=== PATIENT | female | born 1980 | race Caucasian/White ===

== ENCOUNTER 2016-11-20 09:03 | Emergency (ER) | payer MEDICAID, SELFPAY ==
[~2016-11-20] VITALS: Ht 170.2 cm; Wt 108.9 kg
[2016-11-20] MEDS ORDERED: MUCI600T37 PO (09:15)
[2016-11-20] MEDS ORDERED: PAXI40TA10 PO (09:15)
[2016-11-20] MEDS ORDERED: CORE12.5 PO (09:15)
[2016-11-20] MEDS ORDERED: AZIT-12 PO (09:15)
[2016-11-20] MEDS ORDERED: predniSONE 20 MG TAB PO ONE (10:15)
[2016-11-20] MEDS ORDERED: IPRATROPIUM 0.5MG/ALBUTEROL 2.5MG INH SOL UD 3ML (DUONEB)(J7620) NEB ONE (10:15)
[2016-11-20] MEDS ORDERED: ALBU17IN INH (10:57)
[2016-11-20] MEDS ORDERED: PRED20TA PO (10:57)
[2016-11-20] MEDS ORDERED: TESS100C PO (10:58)
[2016-11-20 11:07] VITALS: BP 172/105
== END 2016-11-20 11:14 | disposition home or self-care (01) ==
LOC: M ED 10:38
DX: J06.9 Acute upper respiratory infection, unspecified (principal); R05 Cough; I10 Essential (primary) hypertension; E66.9 Obesity, unspecified; F99 Mental disorder, not otherwise specified; F17.210 Nicotine dependence, cigarettes, uncomplicated; Z88.2 Allergy status to sulfonamides; Z79.899 Other long term (current) drug therapy; Z79.2 Long term (current) use of antibiotics

== ENCOUNTER 2017-03-29 14:34 | Emergency (ER) | payer OTHER, SELFPAY ==
[~2017-03-29] VITALS: Ht 170.2 cm; Wt 111.4 kg
[~2017-03-29 14:34] MED LIST: ALBU17IN INH; AZIT-12 PO; CORE12.5 PO; MUCI600T37 PO; PAXI40TA10 PO; PRED20TA PO; TESS100C PO
[2017-03-29] MEDS ORDERED: ASPIRIN 81 MG CHEW TABLET PO ONE (15:00)
[2017-03-29] MEDS ORDERED: MORPHINE 2 MG/ML 1ML SYRINGE IV PRN (15:00)
[2017-03-29] MEDS: METOPROLOL 5 MG/5 ML VIAL IV SCH ×3 (15:06→15:43)
[2017-03-29 15:12] LABS: BASO # 0.1 10^3/uL (0.0-0.2); EOS # 0.4 10^3/uL (0.0-0.50); EOS % 3.3 % (0.0-3.0); IMMATURE GRANULOCYTE % 0.5 % (0-0); LYMPH % 28.1 % (24.0-44.0); MEAN CORPUSCULAR HEMOGLOBIN 31.8 pg (27.0-33.0); MEAN CORPUSCULAR HGB CONC 33.8 g/dl (32.0-36.5); MONO # 0.8 10^3/uL (0.0-0.8); MONO % 7.5 % (0.0-5.0); NEUTROPHILS # 6.3 10^3/uL (1.8-7.7); NEUTROPHILS % 59.6 % (36.0-66.0); PLATELET COUNT, AUTOMATED 269 10^3/uL (150-450); RED CELL DISTRIBUTION WIDTH 13.6 % (11.5-14.5); WHITE BLOOD COUNT 10.5 10^3/uL (4.0-10.0)
[2017-03-29 15:13] LABS: ADD MORPHOLOGY? NO
[2017-03-29 15:19] LABS: INR 0.92
[2017-03-29 15:25] LABS: CONTROL LINE HCG INT CTR LINE PRESENT
[2017-03-29 15:36] LABS: ALBUMIN 3.3 GM/DL (3.2-5.2); ALBUMIN/GLOBULIN RATIO 0.77 (1.00-1.93); ALKALINE PHOSPHATASE 78 U/L (45-117); ALT/SGPT 44 U/L (12-78); ANION GAP 6 MEQ/L (8-16); AST/SGOT 26 U/L (15-37); BILIRUBIN,DIRECT < 0.1 MG/DL (0.0-0.2); BILIRUBIN,TOTAL 0.4 MG/DL (0.2-1.0); BLOOD UREA NITROGEN 7 MG/DL (7-18); CALCIUM LEVEL 9.6 MG/DL (8.5-10.1); CARBON DIOXIDE LEVEL 29 MEQ/L (21-32); CHLORIDE LEVEL 102 MEQ/L (98-107); CREATININE FOR GFR 0.85 MG/DL (0.55-1.02); FREE T4 0.99 NG/DL (0.76-1.46); GLOMERULAR FILTRATION RATE > 60.0 (>60); GLUCOSE, FASTING 101 MG/DL (70-105); POTASSIUM SERUM 3.8 MEQ/L (3.5-5.1); SODIUM LEVEL 137 MEQ/L (136-145); TOTAL PROTEIN 7.6 GM/DL (6.4-8.2)
[2017-03-29] MEDS ORDERED: NS 1,000 ML IV ONE (15:45)
--- NOTE | 2017-03-29 16:25 | REP ---
Chest one-view HISTORY: Chest pain Comparison: 07/04/2015 The lungs are clear. The heart is normal in size. The pulmonary vasculature is normal in appearance. Impression: No acute disease. Signed by Glenn Berman MD 03/29/2017 04:16 P
[2017-03-29 16:27] VITALS: BP 186/94
[2017-03-29] MEDS ORDERED: CARVedilol 12.5 MG TAB PO ONE (16:30)
[2017-03-29 18:46] VITALS: BP 173/96
--- NOTE | 2017-03-29 21:51 | ECGEPIP ---
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
--- NOTE | 2017-03-29 21:52 | ECGEPIP ---
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
== END 2017-03-29 19:02 | disposition home or self-care (01) ==
LOC: M ED 14:34
DX: R07.9 Chest pain, unspecified (principal); I10 Essential (primary) hypertension; F41.9 Anxiety disorder, unspecified; F33.9 Major depressive disorder, recurrent, unspecified; F17.210 Nicotine dependence, cigarettes, uncomplicated; Z79.899 Other long term (current) drug therapy; Z88.2 Allergy status to sulfonamides

== ENCOUNTER → 2017-06-29 | Outpatient (CLI) | payer OTHER ==
[2017-06-29 14:22] LABS: BASO # 0.1 10^3/uL (0.0-0.2); BASO % 0.7 % (0.0-1.0); EOS # 0.3 10^3/uL (0.0-0.50); IMMATURE GRANULOCYTE # 0.1 10^3/uL (0-0); IMMATURE GRANULOCYTE % 0.5 % (0-0); LYMPH # 2.6 10^3/uL (1.5-4.5); LYMPH % 16.6 % (24.0-44.0); MEAN CORPUSCULAR HEMOGLOBIN 31.9 pg (27.0-33.0); MEAN CORPUSCULAR HGB CONC 34.2 g/dl (32.0-36.5); MEAN CORPUSCULAR VOLUME 93.3 fl (80.0-96.0); MONO # 1.3 10^3/uL (0.0-0.8); MONO % 8.3 % (0.0-5.0); NEUTROPHILS % 71.9 % (36.0-66.0); PLATELET COUNT, AUTOMATED 248 10^3/uL (150-450); RED CELL DISTRIBUTION WIDTH 13.9 % (11.5-14.5); WHITE BLOOD COUNT 15.4 10^3/uL (4.0-10.0)
== END ==
LOC: M WUC 13:15
DX: J36 Peritonsillar abscess (principal)
CPT/HCPCS: 85025

== ENCOUNTER → 2017-08-04 | Outpatient (REF) | payer OTHER ==
[2017-08-04 23:13] LABS: INFLUENZA A AMPLIFICATION NEGATIVE (NEGATIVE); INFLUENZA B AMPLIFICATION NEGATIVE (NEGATIVE); RSV AMPLIFICATION NEGATIVE (NEGATIVE)
== END ==
LOC: M LAB REF 21:33
DX: J11.1 Influenza due to unidentified influenza virus with other respiratory manifestations (principal)
CPT/HCPCS: 87631

== ENCOUNTER → 2017-09-16 | Outpatient (CLI) | payer OTHER | LOC: M RAD 12:22 | DX: R00.2 Palpitations (principal) | CPT/HCPCS: 71046 ==

== ENCOUNTER 2023-03-02 01:25 | Emergency (ER) | payer OTHER ==
[~2023-03-02] VITALS: Ht 170.2 cm; Wt 112.1 kg
[~2023-03-02 01:25] MED LIST changes: +CLAR500T97 PO; +CLIN150C17 PO; -PAXI40TA10 PO; +PAXI40TA12 PO; +PROM12.56 PO
[2023-03-02 02:04] LABS: BASO # 0.1 10^3/uL (0.0-0.2); BASO % 0.9 % (0.0-1.0); EOS # 0.3 10^3/uL (0.0-0.5); EOS % 2.2 % (0.0-3.0); HEMATOCRIT 52.8 % (36.0-47.0); HEMOGLOBIN 18.1 g/dl (12.0-15.5); LYMPH # 2.8 10^3/uL (1.5-5.0); LYMPH % 19.8 % (24.0-44.0); MEAN CORPUSCULAR HEMOGLOBIN 32.7 pg (27.0-33.0); MEAN CORPUSCULAR HGB CONC 34.3 g/dl (32.0-36.5); MEAN CORPUSCULAR VOLUME 95.5 fl (80.0-96.0); MONO # 1.1 10^3/uL (0.0-0.8); NEUTROPHILS # 9.5 10^3/uL (1.5-8.5); NEUTROPHILS % 68.7 % (36.0-66.0); PLATELET COUNT, AUTOMATED 220 10^3/uL (150-450); RED BLOOD COUNT 5.53 10^6/uL (4.00-5.40); WHITE BLOOD COUNT 13.9 10^3/uL (4.0-10.0)
[2023-03-02 02:39] LABS: BLOOD UREA NITROGEN < 5 MG/DL (9-23); CALCIUM LEVEL 8.6 MG/DL (8.5-10.1); CARBON DIOXIDE LEVEL 25 MMOL/L (20-31); CHLORIDE LEVEL 103 MMOL/L (98-107); CREATININE FOR GFR 0.72 MG/DL (0.55-1.30); GLOMERULAR FILTRATION RATE > 60.0 (>58); GLUCOSE, FASTING 157 MG/DL (60-100); POTASSIUM SERUM 4.2 MMOL/L (3.5-5.1); SODIUM LEVEL 134 MMOL/L (136-145)
[2023-03-02] MEDS ORDERED: KETOROLAC 30 MG/ML 1ML VIAL IV ONE (07:25)
[2023-03-02] MEDS ORDERED: hydroCHLOROthiazide 12.5 MG CAPSULE PO ONE (07:30)
[2023-03-02] MEDS ORDERED: ISOVUE-370 76% 100ML VIAL As Ordered ONE (07:32)
[2023-03-02] MEDS ORDERED: AMPICILLIN SOD/SULBACTAM SOD 1.5 GM in D5W MINI-BAG PLUS 50 ML IV ONE (09:50)
[2023-03-02] MEDS ORDERED: dexAMETHasone 20MG/5ML VIAL IV ONE (09:50)
[2023-03-02] MEDS ORDERED: AMOX875T2 PO (10:19)
[2023-03-02] MEDS ORDERED: LISI20TA35 PO (10:19)
[2023-03-02] MEDS ORDERED: MEDR4PAK PO (10:19)
[2023-03-02 10:33] VITALS: TEMP 99.2; O2SAT 99
[2023-03-02 10:54] VITALS: BP 198/98
[2023-03-02] MEDS ORDERED: cloNIDine 0.1MG TABLET PO ONE (11:00)
== END 2023-03-02 11:14 | disposition home or self-care (01) ==
LOC: M ED 01:25
DX: K04.7 Periapical abscess without sinus (principal); L03.211 Cellulitis of face; Z76.0 Encounter for issue of repeat prescription; I10 Essential (primary) hypertension; F32.A Depression, unspecified; F17.200 Nicotine dependence, unspecified, uncomplicated
CPT/HCPCS: 70491; 80048; 85025; 85652; 86140; 87040; 96374; 96375; 99284; J0295; J1100; J1885; Q9967

== ENCOUNTER → 2023-03-13 | Outpatient (CLI) | payer MEDICAID ==
[~2023-03-13] MED LIST changes: +AMOX875T2 PO; +LISI20TA35 PO; +MEDR4PAK PO
[2023-03-13 18:57] LABS: HEMATOCRIT 54.8 % (36.0-47.0); HEMOGLOBIN 18.4 g/dl (12.0-15.5); MEAN CORPUSCULAR HEMOGLOBIN 32.9 pg (27.0-33.0); MEAN CORPUSCULAR HGB CONC 33.6 g/dl (32.0-36.5); PLATELET COUNT, AUTOMATED 262 10^3/uL (150-450); RED BLOOD COUNT 5.59 10^6/uL (4.00-5.40); WHITE BLOOD COUNT 12.6 10^3/uL (4.0-10.0)
[2023-03-13 19:05] LABS: HEMOGLOBIN A1c 7.3 % (4.0-6.0)
[2023-03-13 19:10] LABS: APPEARANCE, URINE HAZY (CLEAR); BACTERIA, URINE AUTO NEGATIVE (NEGATIVE); BILIRUBIN, URINE AUTO NEGATIVE (NEGATIVE); BLOOD, URINE BLOOD NEGATIVE (NEGATIVE); CALCIUM OXALATE CRYSTALS SMALL; COLOR, URINE AMBER (YELLOW); GLUCOSE, URINE (UA) AUTO NEGATIVE (NEGATIVE); KETONE, URINE AUTO TRACE mg/dL (NEGATIVE); LEUKOCYTE ESTERASE, URINE AUTO NEGATIVE (NEGATIVE); MUCUS, URINE SMALL (NEGATIVE); NITRITE, URINE AUTO NEGATIVE (NEGATIVE); PROTEIN, URINE AUTO NEGATIVE (NEGATIVE); RBC, URINE AUTO 2 /HPF (0-3); SPECIFIC GRAVITY URINE AUTO 1.019 (1.002-1.035); SQUAMOUS EPITHELIAL CELL UR AU 6 /HPF (0-6); WBC, URINE AUTO 3 /HPF (0-3)
[2023-03-13 19:25] LABS: ALBUMIN 3.2 G/DL (3.2-5.2); ALKALINE PHOSPHATASE 74 U/L (46-116); ALT/SGPT 42 U/L (7.0-40); AST/SGOT 15 U/L (<34); BILIRUBIN,TOTAL 0.3 MG/DL (0.3-1.2); BLOOD UREA NITROGEN 7 MG/DL (9-23); CALCIUM LEVEL 9.6 MG/DL (8.5-10.1); CARBON DIOXIDE LEVEL 31 MMOL/L (20-31); CHLORIDE LEVEL 102 MMOL/L (98-107); CREATININE FOR GFR 0.67 MG/DL (0.55-1.30); GLOMERULAR FILTRATION RATE > 60.0 (>58); GLUCOSE, FASTING 175 MG/DL (60-100); POTASSIUM SERUM 4.4 MMOL/L (3.5-5.1); SODIUM LEVEL 138 MMOL/L (136-145); TOTAL PROTEIN 6.5 G/DL (5.7-8.2)
== END ==
LOC: M WUC 15:12
PROVIDERS: ATTEND Family Medicine
DX: I10 Essential (primary) hypertension (principal); F41.9 Anxiety disorder, unspecified; R73.09 Other abnormal glucose

== ENCOUNTER → 2024-03-29 | Outpatient (CLI) | payer MEDICAID ==
[2024-03-29 18:19] LABS: BASO # 0.1 10^3/uL (0.0-0.2); BASO % 0.9 % (0.0-1.0); EOS # 0.3 10^3/uL (0.0-0.5); EOS % 2.6 % (0.0-3.0); HEMATOCRIT 52.8 % (36.0-47.0); HEMOGLOBIN 17.6 g/dl (12.0-15.5); LYMPH # 3.5 10^3/uL (1.5-5.0); LYMPH % 29.4 % (24.0-44.0); MEAN CORPUSCULAR HGB CONC 33.3 g/dl (32.0-36.5); MEAN CORPUSCULAR VOLUME 102.1 fl (80.0-96.0); MONO # 0.8 10^3/uL (0.0-0.8); MONO % 6.7 % (2.0-8.0); NEUTROPHILS # 7.1 10^3/uL (1.5-8.5); PLATELET COUNT, AUTOMATED 249 10^3/uL (150-450); RED BLOOD COUNT 5.17 10^6/uL (4.00-5.40)
[2024-03-29 18:53] LABS: TOTAL IRON BINDING CAPACITY 322 UG/DL (250-425)
[2024-03-29 18:55] LABS: ALBUMIN 3.1 G/DL (3.2-5.2); ALKALINE PHOSPHATASE 77 U/L (46-116); ALT/SGPT 21 U/L (7.0-40); AST/SGOT 15 U/L (<34); BILIRUBIN,TOTAL 0.3 MG/DL (0.3-1.2); BLOOD UREA NITROGEN 5 MG/DL (9-23); CALCIUM LEVEL 9.4 MG/DL (8.5-10.1); CARBON DIOXIDE LEVEL 29 MMOL/L (20-31); CHLORIDE LEVEL 107 MMOL/L (98-107); CHOLESTEROL LEVEL 181 MG/DL (<200); CREATININE FOR GFR 0.64 MG/DL (0.55-1.30); FERRITIN 59.2 NG/ML (7.3-270.7); GLOMERULAR FILTRATION RATE > 60.0 (>58); GLUCOSE, FASTING 161 MG/DL (60-100); HDL CHOLESTEROL 36.9 MG/DL (>40); IRON (FE) 49 UG/DL (50-170); LDL CHOLESTEROL 89.1 MG/DL (<100); NON-HDL-C 144.1 MG/DL; PERCENT SATURATION 15.2 % (13.2-45.0); POTASSIUM SERUM 4.1 MMOL/L (3.5-5.1); SODIUM LEVEL 137 MMOL/L (136-145); TOTAL PROTEIN 6.6 G/DL (5.7-8.2); TRIGLYCERIDES LEVEL 275 MG/DL (<150)
[2024-03-29 19:10] LABS: HEMOGLOBIN A1c 7.7 % (4.0-6.0)
[2024-03-30 07:20] LABS: WHITE BLOOD COUNT 11.8 10^3/uL (4.0-10.0)
== END ==
LOC: M WUC 11:47
PROVIDERS: ATTEND Internal Medicine
DX: D75.1 Secondary polycythemia (principal); E11.9 Type 2 diabetes mellitus without complications